=== PATIENT | male | born 1990 | race Caucasian/White ===

== ENCOUNTER 2021-06-15 15:43 | Emergency (ER) | payer BC, OTHER ==
[2021-06-15] MEDS ORDERED: Sodium Chloride 0.9% 10 ML Syringe FLUSH PRN (15:52)
[2021-06-15 16:29] LABS: CHLORIDE,CL 102 mmol/L (98-107); SODIUM,NA 139 mmol/L (136-145)
[2021-06-15] MEDS: Iopamidol 612 MG/ML 100 ML Bottle ONE (17:00)
== END 2021-06-15 17:50 | disposition home or self-care (01) ==
LOC: LL.ED 15:43
DX: K59.00 Constipation, unspecified (principal)
CPT/HCPCS: 36415; 74177; 80053; 81003; 83605; 83735; 84100; 85025; 86140; 99284; Q9967

== ENCOUNTER 2021-06-23 06:06 | Emergency (ER) | payer BC ==
[2021-06-23] MEDS ORDERED: Sodium Chloride 0.9% 10 ML Syringe FLUSH PRN (06:28)
[2021-06-23] MEDS ORDERED: Sodium Chloride 0.9% 1,000 ML IV ONE (06:33)
[2021-06-23] MEDS ORDERED: Ketorolac 30 MG/ML SDV IVPUSH ONE (06:34)
[2021-06-23 07:19] LABS: ANION GAP 20.1 meq/L (7-15); CHLORIDE,CL 97 mmol/L (98-107); SODIUM,NA 138 mmol/L (136-145)
[2021-06-23] MEDS ORDERED: Iopamidol 612 MG/ML 100 ML Bottle IVPUSH ONE (08:06)
== END 2021-06-23 09:45 | disposition home or self-care (01) ==
LOC: LL.ED 06:06
DX: K76.0 Fatty (change of) liver, not elsewhere classified (principal); R74.01 Elevation of levels of liver transaminase levels
CPT/HCPCS: 36415; 74177; 80053; 82150; 83605; 83690; 85025; 86140; 96374; 99284; 99284-25; J1885; J7030; Q9967